=== PATIENT | female | born 2000 | race Caucasian/White ===

== ENCOUNTER 2022-07-15 20:58 | Emergency (ER) | payer OTHER ==
--- OUTSIDE RECORDS SUMMARY | 2022-07-15 21:01 | XMS REPORT | Continuity of Care Document ---
:2000 Author Organization [facility] t Address [address] [place] [address] Care Team Providers Name Role Phone TRINO TAO Primary Care Physician Unavailable TAB NICOLAS Attending Clinician Unavailable SANJIV NICHOLS Attending Clinician Unavailable SANJIV NICHOSL Admitting Clinician Unavailable Problems This patient has no known problems. Allergies, Adverse Reactions, Alerts Allergy Allergy Status Severity Reaction(s) Onset Inactive Treating Comm ents Source Name Type Date Date Clinician NO KNOWN Drug Active [facility] ALLERG Jean boogie [facility] Medications This patient has no known medications. Procedures This patient has no known procedures. Encounters Start End Encounter Admission Attending Care Care Encounter Source Date/Time Date/Time Type Type Clinicians Facility Department ID 2021-06-29 2021-06-29 Outpatient MARIA ISABEL [facility] [id number] 00:00:00 00:00:[address] 2019-07-07 2019-07-08 Emergency X DENVER NICHOLS ERT [id number] [facility] 23:00:17 02:49:00 SANJIV boogie [facility] Results This patient has no known results.
[2022-07-15] MEDS ORDERED: KETOROLAC 30 MG/ML INJ ONE (22:26)
[2022-07-15] MEDS ORDERED: TDAP (DIPHTH,PERTUSS(ACELL),TET VAC) 0.5 ML VIAL IMVAC ONE (22:27)
--- NOTE | 2022-07-15 22:35 | RAD REPORT ---
EXAM DESCRIPTION: RAD - Knee Left 3 View - 07/15/2022 10:25 pm CLINICAL HISTORY: PAIN COMPARISON: No comparisons FINDINGS: No fracture, dislocation or periosteal reaction.Questionable small joint effusion. No join t space narrowing. No soft tissue abnormality. IMPRESSION: Questionable small joint effusion with no acute bone finding. Clinical concerns for internal derangement or occult bony injury could be further assessed with MR im aging.
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
--- NOTE | 2022-07-15 22:43 | EDPHYS ---
Physician Documentation [facility] Name: Bertha Zelaya Age: 21 yrs Sex: Female : 2000 Arrival Date: 07/15/2022 Time: 21:02 Bed 11 Private MD: ED Physician Nicho Rouse HPI: 07/15 22:13 This 21 yrs old Female presents to ER via Ambulatory with complaints of Fall Injury, snw Knee Injury, Knee Pain. 22:13 Details of fall: The patient fell from an upright position, while running. Onset: The snw symptoms/episode began/occurred suddenly, last night. Associated injuries: The patient sustained left knee, decreased range of motion, ecchymosis, painful injury, swelling. Severity of symptoms: At their worst the symptoms were moderate. The patient has not experienced similar symptoms in the past. The patient has not recently seen a physician. 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 - Social history:: Smoking status: Patient reports the use of cigarette tobacco products. ROS: 22:12 Constitutional: Negative for fever, chills, and weight loss, Eyes: Negative for injury, snw pain, redness, and discharge, ENT: Negative for injury, pain, and discharge, Neck: Negative for injury, pain, and swelling, Cardiovascular: Negative for chest pain, palpitations, and edema, Respiratory: Negative for shortness of breath, cough, wheezing, and pleuritic chest pain, Abdomen/GI: Negative for abdominal pain, nausea, vomiting, diarrhea, and constipation, Back: Negative for injury and pain, : Negative for injury, bleeding, discharge, and swelling, Skin: Negative for injury, rash, and discoloration, Neuro: Negative for headache, weakness, numbness, tingling, and seizure, Psych: Negative for depression, anxiety, suicide ideation, homicidal ideation, and hallucinations. 22:12 MS/extremity: Positive for injury or acute deformity, contusion, decreased range of motion, pain, swelling, tenderness, of the left knee. Exam: 22:11 Constitutional: This is a well developed, well nourished patient who is awake, alert, snw and in no acute distress. Head/Face: Normocephalic, atraumatic. Eyes: Pupils equal round and reactive to light, extra-ocular motions intact. Lids and lashes normal. Conjunctiva and sclera are non-icteric and not injected. Cornea within normal limits. Periorbital areas with no swelling, redness, or edema. ENT: Nares patent. No nasal discharge, no septal abnormalities noted. Tympanic membranes are normal and external auditory canals are clear. Oropharynx with no redness, swelling, or masses, exudates, or evidence of obstruction, uvula midline. Mucous membranes moist. Neck: Trachea midline, no thyromegaly or masses palpated, and no cervical lymphadenopathy. Supple, full range of motion without nuchal rigidity, or vertebral point tenderness. No Meningismus. Chest/axilla: Normal chest wall appearance and motion. Nontender with no deformity. No lesions are appreciated. Cardiovascular: Regular rate and rhythm with a normal S1 and S2. No gallops, murmurs, or rubs. Normal PMI, no JVD. No pulse deficits. Respiratory: Lungs have equal breath sounds bilaterally, clear to auscultation and percussion. No rales, rhonchi or wheezes noted. No increased work of breathing, no retractions or nasal flaring. Abdomen/GI: Soft, non-tender, with normal bowel sounds. No distension or tympany. No guarding or rebound. No evidence of tenderness throughout. Back: No spinal tenderness. No costovertebral tenderness. Full range of motion. Neuro: Awake and alert, GCS 15, oriented to person, place, time, and situation. Cranial nerves II-XII grossly intact. Motor strength 5/5 in all extremities. Sensory grossly intact. Cerebellar exam normal. Normal gait. Psych: Awake, alert, with orientation to person, place and time. Behavior, mood, and affect are within normal limits. 22:11 Skin: Appearance: normal except for affected area, injury, contusion(s), that are deep, of the bilateral knees, left knee with effusion/edema, tenderness, abrasions. Vital Signs: 21:30 BP 117 / 69; Pulse 79; Resp 16 S; Temp 98.6(O); Pulse Ox 100% on R/A; Weight 65.77 kg bb (R); Height 5 ft. 7 in. (170.18 cm) (R); Pain 7/10; 21:30 Body Mass Index 22.71 (65.77 kg, 170.18 cm) bb MDM: 21:43 Patient medically screened. ioana 22:13 Differential diagnosis: abrasion, contusion, fracture, sprain. Data reviewed: vital snw signs, nurses notes. Data interpreted: Pulse oximetry: on room air is 100 %. Interpretation: normal. Counseling: I had a detailed discussion with the patient and/or guardian regarding: the historical points, exam findings, and any diagnostic results supporting the discharge/admit diagnosis, radiology results, the need for outpatient follow up, to return to the emergency department if symptoms worsen or persist or if there are any questions or concerns that arise at home. Special discussion: Based on the history and exam findings, there is no indication for further emergent testing or inpatient evaluation. I discussed with the patient/guardian the need to see the primary care provider for further evaluation of the symptoms. 22:43 Response to treatment: the patient's symptoms have mildly improved after treatment. snw Special discussion: Based on the history and exam findings, there is no indication for further emergent testing or inpatient evaluation. I discussed with the patient/guardian the need to see the orthopedic surgeon for further evaluation of the symptoms. 07/15 21:33 Order name: XRAY Knee LEFT 3 view; Complete Time: 22:40 bb 07/15 22:41 Order name: Knee Immobilizer; Complete Time: 23:38 snw 07/15 22:41 Order name: Crutches; Complete Time: 23:38 snw 07/15 22:41 Order name: Crutch Training; Complete Time: 23:38 snw Administered Medications: 22:44 Drug: Tetanus-Diphtheria Toxoid Adult 0.5 ml {Last Code Striper: [employer] ([employer]). Exp: vc1 04/07/2023. Lot #: [id number]. } Route: IM; Site: right deltoid; 23:38 Follow up: Response: No adverse reaction bb 22:44 Drug: Ketorolac 30 mg Route: IM; Site: left deltoid; vc1 23:38 Follow up: Response: No adverse reaction bb Disposition Summary: 07/15/22 22:41 Discharge Ordered Location: Home snw Condition: Stable snw Diagnosis - Effusion, left knee snw - Abrasion, left knee snw - Abrasion, right knee snw Followup: snw - With: Emergency Department - When: As needed - Reason: Worsening of condition Followup: snw - With: Private Physician - When: 2 - 3 days - Reason: Recheck today's complaints, Continuance of care, Re-evaluation by your physician Discharge Instructions: - Discharge Summary Sheet snw - Crutch Use, Adult snw - Knee Effusion snw - How to Use a Knee Immobilizer snw - RICE Therapy for Routine Care of Injuries snw - Heat Therapy snw Forms: - Medication Reconciliation Form snw - Thank You Letter snw - Antibiotic Education snw - Prescription Opioid Use snw Prescriptions: - Mobic 7.5 mg Oral Tablet - take 1 tablet by ORAL route once daily take with food; 20 tablet; Refills: 0, snw Product Selection Permitted Signatures: Dispatcher [employer] EDNicho Dennis MD MD cha Waters, Shelly, LINING VAMPER-C LIN[employer]AMPER-Csnw Cristel Freeman, RN RN Sveta Novak RN RN vc1
[2022-07-15 23:43] VITALS: BP 117/69; TEMP 98.6; O2SAT 100
== END 2022-07-15 23:39 | disposition home or self-care (01) ==
LOC: ER 20:58
DX: M25.462 Effusion, left knee (principal); S80.212A Abrasion, left knee, initial encounter; Z23 Encounter for immunization; Z72.0 Tobacco use
CPT/HCPCS: 90471; 96372; 99284